=== PATIENT | female | born 1970 | race Caucasian/White ===

== ENCOUNTER 2018-10-14 09:27 | Day surgery (SDC) | payer BC, SELFPAY ==
[2018-10-14] VITALS (7 sets, daily range): BP systolic 114–156; BP diastolic 66–97; PULSE 81–99; RESP 11–18; TEMP 36.2–37.2; O2SAT 96–100
[2018-10-14] MEDS: Lactated Ringers 1,000 ML 80 ML IV (10:20)
--- NOTE | 2018-10-14 15:21 | PDOC.DSDIS_ITS ---
Discharge Plan Disposition Patient Disposition: HOME Condition: Good Discharge Details Reason For Visit: CONTRACTURE (R) KNEE Attending Provider: Carlos Waller Primary Care Provider: Dominga Rosa Home Meds and New Rx's Prescriptions: New hydrocodone-acetaminophen 5-325 mg tablet 2 tab PO Q6H PRN (Reason: pain) Qty: 30 RF: 0 ondansetron HCl 4 mg tablet 4 mg PO BID-TID PRN (Reason: nausea and vomiting) Qty: 10 RF: 0 No Action levothyroxine 75 MCG tablet 75 mcg PO DAILY RF: 0 diphenhydramine HCl [Benadryl Allergy] 25 MG tablet 25 mg PO PRN PRNRF: 0 liothyronine 5 MCG tablet 10 mcg PO DAILY RF: 0 mometasone [Nasonex] 17 GM spray,non-aerosol 1 spry NS DAILY PRNRF: 0 Zyrtec 10 MG capsule 10 mg PO DAILY PRNRF: 0 ibuprofen 200 MG tablet 400 - 600 mg PO BID PRNRF: 0 sodium chloride [Saline Nasal] 44 ML aerosol,spray 1 ea NS DAILY PRNRF: 0 multivitamin [Daily-Rosy] 1 EACH tablet 1 tab PO DAILY RF: 0 fexofenadine [Angela Allergy] 60 mg Tablet 60 mg PO PRN PRNRF: 0 Discharge Instructions Additional Instructions: Keep cryocuff on R knee continuously overnite. Tomorrow begin to use 4 times/day for 1 hour each time. Try to bend R knee every hour (10-20 times) when awake to keep it moving. Start outpatient physical therapy tomorrow for ROM R tkr post-manipulation. Crutches to walk. Put as much weight on R leg as your discomfort allows. Use crutches or cane as long as you limp. Remove dressings, shower, and get incision wet after 72 hours. Leave incisions uncovered when they are dry and sealed. Follow up with in 2 weeks. Take zofran as needed for nausea from pain meds. Take ibuprofen 600 mg every 8 hours to decrease swelling and inflammation. Take for 2 weeks. Take hydrocodone, 1-2 tab every 6 hours, if needed, for breakthru pain. Referrals: Carlos Waller MD [ [facility] STAFF PHYSICIAN] - (f/u in 2 weeks.) Equipment/Supplies: Partial Weight Bearing Crutches Activity:: Activity as Tolerated Remove Dressings/Wound Care:: 72 hours Shower/Bathe:: 72 hours Diet:: As Tolerated Discharge Orders Discharge Orders: Discharge Order (Routine); Ordered 10/14/18 Ordered By: Carlos Waller DS: Diagnosis Discharge Diagnosis (1) Contracture, right knee: Status: Acute
[2018-10-14] MEDS: fentaNYL 100 MCG/2 ML VIAL IVP ×2 (15:25→15:33)
--- NOTE | 2018-10-14 18:45 | ROE_ITS ---
DATE OF PROCEDURE: October 14, 2018 PREOPERATIVE DIAGNOSIS: Contracture of right total knee. POSTOPERATIVE DIAGNOSIS: Contracture of right total knee. PROCEDURE: Arthroscopic lysis of adhesions right knee, with manipulation of the right knee under gen eral anesthesia. SURGEON: Carlos Waller M.D. ANESTHESIA: General, Kamari Gates CRNA INDICATIONS: This is a 47-year-old white female who is three and a half years status post right tota l knee replacement. She had difficulty regaining flexion of her knee following her primary total kne e replacement three and a half years ago. She subsequently underwent a manipulation of her total kne e which resulted in improved motion. She gradually lost this motion over the next few months despite vigorous Physical Therapy. She is now requesting another manipulation to try and get better flexion . Her main complaint is that she has difficulty going up and down stairs because she cannot flex her total knee enough. Her measured flexion is only about 40 degrees. She has full extension. I thoug ht that it would be difficult to get range of motion back. However, I did not think that manipulatio n alone would suffice. I felt that a lysis of adhesions with confucianist of the suprapatellar pouch and freeing the quadriceps muscle from the anterior femur would allow me to manipulate the knee and g et better motion. I explained to the patient that just like previous times, she will have to be comp liant and will have to work very hard to maintain any motion that is gained from the surgery. She sa id that she would work hard postop to maintain the motion. The risks and complications of the proced ure were explained to the patient in detail preoperatively. PROCEDURE: The patient was taken to the Operating Room on 10/14/18. She was placed supine on the ope rating table and a general anesthetic was administered. The right knee was prepped and draped free i n the usual sterile fashion. Arthroscopic portals were established. The arthroscope was introduced through an infrapatellar lateral portal. An outflow cannula was passed superolateral and superomedia l with the arthroscopy incision for insertion of the high-radiofrequency electrocautery wand. Resect ion of the scar then began around the patella. I cleared out the patellofemoral joint and reestablis hed the lateral gutter and the medial gutter. I then proceeded to reestablish the volume of the supr apatellar pouch and then peeled off the quadriceps from the anterior femur until I thought I had rest ored the full volume to the suprapatellar pouch. At this point, I asked the breakfast manager to provide m uscle paralysis. I then proceeded to manipulate the knee. After the arthroscopic lysis of adhesions , the manipulation did not require any significant force. I was able to manipulate her knee easily i nto flexion of about 115 degrees. Photographs were then taken of her knee in the flexed position to document the amount of flexion that was gained and provide a visual aid for the patient when she reha bs her knee postop. The knee was then irrigated with saline solution using the arthroscopy pump until the outflow was vasu ar. I then instilled into the right knee 20 cc of 0.5% Marcaine with epinephrine solution along with 4 mg of morphine. The arthroscopy portals were infiltrated with 0.5% Marcaine with epinephrine solu tion and were approximated with interrupted #4-0 nylon sutures. Sterile dressings were applied, foll owed by a light compressive dressing to the right knee. The patient tolerated her procedure well. H er anesthesia was reversed without complications. Blood loss was minimal. She was discharged to the Recovery Room in good condition. The patient was later discharged home from the Day Surgery Unit when fully recovered from her general anesthesia. She was seen by Physical Therapy to begin active flexion of her right knee in the Day S urgery Unit. She will continue to try to flex her knee actively 10 to 20 times an hour when awake to night. Tomorrow she will start outpatient Physical Therapy to try to maintain the motion that was ga ined with manipulation. She is to run the Cryo/Cuff continuously overnight on the right knee. Luis Eduardo calabrese she will start using the Cryo/Cuff four times a day for an hour each time. She should keep her dr melo intact for the next 72 hours. After 72 hours she may remove the dressings, shower and get th e incisions wet. She can leave the incisions uncovered when they are dry and sealed. She is to be w eightbearing as tolerated with crutches. She will continue to use crutches or a cane as long as she has a limp. She is given a fentanyl patch 25 mcg to use to supplement her postoperative pain medicat ions for the next 72 hours. She is given a prescription for hydrocodone/APAP 5 mg/325 mg, 1-2 tablet s every 6 hours as needed for breakthrough pain. She will continue with ibuprofen 600 mg p.o. t.i.d. for the next two weeks. She is given a prescription for Zofran 4 mg p.o. q.6h. p.r.n. for nausea fr om her pain medications. She will follow up with Dr. Waller in two weeks.
--- NOTE | 2018-10-15 11:06 | PT.INIE ---
Date of service: 10/14/18 Time of Service: 13:12 PT Notes Inpatient Physical Therapy Evaluation Date: 10/14/2018 Referring Doctor: Carlos Waller MD PT Orders: PT CONSULT: Start active flexion of right knee in DSU. Had arthroscopic lysis of adhesions and manipulation of right TKR. Will need to be followed as an outpatient starting tomorrow. Precautions: Fall. Standard. PWB on right LE. Patient Profile/Admitting Diagnosis: Patient is a 47-year-old female with diagnosis of right knee contracture status post arthroscopic lysis of adhesions and manipulation of right TKR early today. Patient had a previous TKR on 01/11/2015. She reports that she has had increasing difficulty with mobility performance and has manipulations done previously to manage range of motion issues on same knee. PMHX: Unremarkable except for right TKR on 01/11/2015. Social History/Home Situation: Patient lives with in a house with 14 steps to the second floor where patient's bedroom, rails on both sides. Equipment Owned/DME: Patient has bilateral axillary crutches at home Subjective: Patient in PACU bed. Agreeable to a PT consult and intervention. I feel like my hamstrings are on the verge of cramping Objective: General Observation: Patient lying in bed. Telemetry on. IV in the right UE. Jorje bandages on mid thigh through distal leg on the right side. Mental Status: Alert and oriented x3 Pain: 5/10 on the right hip mostly on the popliteal area near hamstring insertions. ROM: Right Upper Extremity: WFL Left Upper Extremity: WFL Right Lower Extremity: Patient able to actively flex knee up to 88 degrees in supine with 5/10 pain on popliteal area. Hip flexion 0-100 degrees, actively. Dorsiflexion WFL. Left Lower Extremity: WFL Strength: Right Upper Extremity: WFL Left Upper Extremity: WFL Right Lower Extremity: Hip flexors 3-/5. Knee extensors 3/5. Knee flexors 3-/5. Ankle dorsiflexors/plantarflexors 4+/5. Left Lower Extremity: WFL Sensation: Intact as to pain and pressure on distal B LE. Bed Mobility/Transfers: Rolling minimal assist Supine to sit NT Sit to supine NT Sit to stand NT Stand to sit NT Bed to chair NT Chair to bed NT Gait: NT. Patient did not feel secure to do ambulation due to increased cramping of hamstring muscles. Gait teaching on safe gait pattern and appropriate weight bearing precaution done with walker and bilateral crutches. Balance: Static Sitting: NT Dynamic Sitting: NT Static Standing: NT Dynamic Standing: NT Special Tests: Mobility Limitations Standardized Measure [facility] AM-PAC 6 clicks Basic Mobility Inpatient Short Form: Raw Score: 10 CMS Score: 77% deficit Informed Consent/Education/PT Intervention: Patient instructed in purpose of PT consult. The following therapeutic exercises were given to patient for today's session with intermittent rests and deep breathing exercises done in between each activity: gentle passive stretching to right knee flexors 5 reps with [id number] with contract-relax technique incorporated, supine SLR x 10, supine heel slides x10, supine LAQs cues x10. Assessment: Patient is a 47 year old female referred to physical therapy services with the diagnosis of right knee contracture status post arthroscopic lysis of adhesions and manipulation of right TKR. Patient presents with clinical signs and symptoms consistent with current/admitting diagnoses that has resulted to mobility limitations, gait instability, generalized weakness, and lack of motor control as demonstrated by the following impairment level findings: as demonstrated by the following impairment level findings: 1. Decreased strength right LE major muscle group 2. Impaired balance 3. Impaired activity tolerance 4. Limitation of joint range of motion in right hip and knee joints Impairments are contributing to the following functional limitations: 1. Impaired bed mobility skills performance 2. Increased dependence with transfers 3. Inability to safely ambulate without assistive device and physical assistance 4. Increase completion time for mobility ADL performance 5. Increased fall risk 6. Inability to negotiate steps alone safely Patient is assessed as a Low 49447 complexity based on the following: History: Patient is a 47-year-old female with right knee contracture status post arthroscopic lysis of adhesions and manipulation of right TKR Examination: Underlying impairments and functional deficits as noted above Presentation: Evolving Decision Making: Low 66903 complexity Goals: Not applicable. Patient goes home today with plan to proceed with outpatient physical therapy services beginning tomorrow as ordered by orthopedic surgeon DISCHARGE RECOMMENDATIONS: Continue with weightbearing precaution using bilateral axillary crutches. Outpatient physical therapy services to commands on 10/15/2018 as ordered by orthopedic surgeon. TREATMENT CODE/TIME: 42728 30 minutes, 90434 25 minutes, 83938 12 minutes beginning at 13:12 PM.
== END 2018-10-14 17:31 | disposition home or self-care (01) ==
PROVIDERS: PCP Nurse Practitioner Family; Visit Provider Orthopaedic Surgery
PROC: (CPT 29870; principal; 2018-10-14 11:30)
PROC: (CPT 27570; 2018-10-14 11:30)
DX: M24.561 Contracture, right knee (principal); Z96.651 Presence of right artificial knee joint
CPT/HCPCS: 29884; 27570; 97110; 97162; 97530; J0690; J3010

== ENCOUNTER 2018-10-24 10:34 | Outpatient (CLI) | payer BC, SELFPAY ==
[2018-10-24 12:03] LABS: ALT 30 U/L (12-78); AST 35 U/L (15-37); Albumin 4.1 g/dL (3.4-5.0); Alkaline Phosphatase 66 U/L (46-116); Bilirubin, Total 0.5 mg/dL (0.2-1.0); Cholesterol 138 mg/dL (50-200); HDL Cholesterol 47 mg/dL (40-60); LDL CHOLESTEROL 88 mg/dL (<100); Total Protein 7.1 g/dL (6.4-8.2); Triglyceride 35 mg/dL (30-150)
[2018-10-24 12:24] LABS: Bilirubin, Direct 0.15 mg/dL (0.00-0.20); FREE T4 1.19 ng/dL (0.76-1.46)
[2018-10-24 21:03] LABS: T3,Free 5.3 pg/ml (2.8-5.3)
[2018-10-25 09:50] LABS: Thyroglobulin Antibody 39 U/mL (<61); Thyroperoxidase Antibody 95 U/mL (<61)
== END 2018-10-24 10:54 ==
PROVIDERS: PCP Nurse Practitioner Family; Visit Provider Naturopath
DX: Z00.00 Encounter for general adult medical examination without abnormal findings (principal); E06.3 Autoimmune thyroiditis
CPT/HCPCS: 36415; 80061; 80076; 83721; 84439; 84443; 84481; 86376; 86800

== ENCOUNTER 2019-12-09 13:01 | Outpatient (CLI) | payer BC, SELFPAY ==
--- NOTE | 2019-12-09 11:39 | DI.RAD_ITS ---
EXAM: XR SHOULDER LT COMPLETE 2+V CLINICAL HISTORY: pain TECHNIQUE: COMPARISON: No exams were available for comparison FINDINGS: Two views were obtained. There is tiny soft tissue calcification projected lateral to the humeral he ad on internal rotation AP view. There are mild changes of hypertrophic spurring at the acromioclavi cular joint. Cartilaginous joint space of glenohumeral joint appears fairly well maintained. No oth er significant abnormality seen. IMPRESSION:
== END 2019-12-09 13:21 ==
PROVIDERS: PCP Nurse Practitioner Family; Visit Provider Orthopaedic Surgery
DX: M25.512 Pain in left shoulder (principal)
CPT/HCPCS: 73030

== ENCOUNTER 2020-10-13 14:52 | Outpatient (CLI) | payer BC, SELFPAY ==
--- NOTE | 2020-10-13 13:00 | DI.RAD_ITS ---
EXAM: XR KNEE LT 3V AP,LAT,LISA CLINICAL HISTORY: left knee pain. TECHNIQUE: 2D digital imaging was performed. COMPARISON: CR RIGHT KNEE LIMITED 1 OR 2 VIEW from 01/12/2016 FINDINGS: There is no evidence fracture or joint effusion. Some calcification is noted at the insertion site o f the quadriceps tendon on the anterior superior aspect of the patella. No calcification in the weeks llar ligament. No obvious degenerative changes in the medial lateral compartments.. Mild degenerati ve changes are seen in the patellofemoral compartment is seen on the lateral view. On the merchant's view there is no narrowing of the retropatellar space. IMPRESSION: DATA REPOSITORY: RADIATION DOSE DELIVERED:
== END 2020-10-13 14:53 | disposition home or self-care (01) ==
LOC: DIORS 14:52
PROVIDERS: PCP Nurse Practitioner Family; Referring Provider Nurse Practitioner Family; Visit Provider Student in an Organized Health Care Education/Training Program
DX: M25.562 Pain in left knee (principal)
CPT/HCPCS: 73562

== ENCOUNTER 2020-12-23 14:03 | Outpatient (REF) | payer BC, SELFPAY ==
--- NOTE | 2020-12-23 13:00 | PAPFT_PTH ---
PATIENT: Sita De León LOC: [facility] U#:[id number] AGE/SX: 50/F ROOM: RE12/23/[address]: JOCELYNN Howard : 1970 BED: DIS: 12/23/2020 SPEC #: [id number] RECD: 12/23/20 17:51 STATUS: KIANA REIan #: [id number] LANIE: 12/23/20 13:[address]: Safia Singh DEPT: [facility] Cytology RECD BY: Rowan Garcia ENTERED: 12/23/20 17:51 SP TYPE: PAPFT OTHR DR: Dominga Rosa Tissues: 1 - CX/ENDOCX FOR PAP SMEARS Procedures: PAP THIN PREP/UVM Screening HPV DNA PROBE Comments: [id number]
== END 2020-12-23 14:04 | disposition home or self-care (01) ==
LOC: LBN 14:03
PROVIDERS: PCP Nurse Practitioner Family; Visit Provider Nurse Practitioner Family
DX: Z12.4 Encounter for screening for malignant neoplasm of cervix (principal); Z11.51 Encounter for screening for human papillomavirus (HPV)
CPT/HCPCS: 88142; 87624

== ENCOUNTER 2021-01-12 08:22 | Outpatient (CLI) | payer BC, SELFPAY ==
[2021-01-12 16:05] LABS: TSH 0.76 uIU/mL (0.36-3.74)
[2021-01-12 22:29] LABS: Thyroperoxidase Antibody 64 U/mL (<=60)
[2021-01-18 22:28] LABS: Thyroglobulin Antibody <15 U/mL (<=60)
== END 2021-01-12 08:23 | disposition home or self-care (01) ==
PROVIDERS: PCP Nurse Practitioner Family; Visit Provider Naturopath
DX: E06.3 Autoimmune thyroiditis (principal)
CPT/HCPCS: 36415; 84439; 84443; 84481; 86376; 86800

== ENCOUNTER 2021-02-22 03:01 | Outpatient (CLI) | payer BC, SELFPAY ==
--- NOTE | 2021-02-22 08:15 | DI.US_ITS ---
Exam(s) US PELVIS TRANSVAGINAL EXAM: US PELVIS TRANSVAGINAL CLINICAL HISTORY: Abnormal VAGINAL BLEEDING,N93.9. TECHNIQUE: Transabdominal and transvaginal pelvic ultrasound was performed using standard protocol. COMPARISON: No exams were available for comparison FINDINGS: KIDNEYS: Kidneys are symmetric in size. No evidence of renal calculi. No evidence of hydronephrosis. No renal mass or cyst identified. UTERUS: Position: Anteverted. Size: 8.7 long by 4.2 AP by 5.3 transverse cm Endometrium: Up to 1.3 cm cm. Normal for patient's menstrual status. Myometrium: Unremarkable. Cervix: Unremarkable. OVARIES: Right: 3 x 2.2 x 2.1 cm Cyst or mass: Functional cyst is present. Left: 3 x 1.5 x 1.5 cm Cyst or mass: None. DOPPLER: Color: Symmetric and uniform flow to both ovaries. No hyperemia. Duplex: Normal ovarian arterial waveforms visualized. CUL-DE-SAC: Free fluid: None. Other: None. IMPRESSION: 1. Normal sonographic appearance of the kidneys. 2. Endometrial stripe at the upper limits of normal at 1.3 cm. 3. Unremarkable bilateral ovaries. DATA REPOSITORY:
--- NOTE | 2021-02-22 14:16 | DI.MAMMO_ITS ---
Exam(s) MAMMO SCREENING EXAM: MAMMO SCREENING CLINICAL HISTORY: screening,Z12.39 TECHNIQUE: Bilateral full field digital CC and MLO mammographic images were obtained with 3D tomosyn thesis and utilizing computer aided detection (CAD). COMPARISON: Available for comparison. FINDINGS: Masses/Architectural Distortion: None seen. Microcalcifications: No suspicious pleomorphic-type are seen. Skin Thickening/Nipple Retraction: None. IMPRESSION: 1. No significant interval change with no specific features of malignancy noted. 2. Unless there is more urgent need, screening mammography is recommended, as per [place] [employer] guidelines. BI-RADS Category 1 - Negative Breast Density - Category B - Scattered areas of fibroglandular density Breast density category C or D implies that the patient has dense breast tissue. Dense breast tissue is very common and is not abnormal but dense breast tissue can make it harder to find cancer on a ma mmogram. Also, dense breast tissue may increase their breast cancer risk. This information about the result of the mammogram report was provided to the patient to raise their awareness. Use this report when you speak with the patient about their risks for breast cancer, which includes their family hist ory. At that time, you may recommend for more screening tests (Ultrasound or MRI) as they might be us eful based on their risk. A negative radiographic report should not delay biopsy if a dominant or clinically suspicious mass is present. Up to ten percent of cancers are not identified on mammography. A negative report may reinforce clinical impression. Adenosis and dense breasts may obscure an underlying neoplasm. False positive reports average 6 to 10%. Patient will receive a letter notifying them of these results.
== END 2021-02-22 03:21 ==
PROVIDERS: PCP Nurse Practitioner Family; Visit Provider Nurse Practitioner Family
DX: Z12.31 Encounter for screening mammogram for malignant neoplasm of breast (principal); N93.9 Abnormal uterine and vaginal bleeding, unspecified; R92.8 Other abnormal and inconclusive findings on diagnostic imaging of breast
CPT/HCPCS: 77063; 77067; 76830; 76856

== ENCOUNTER 2021-11-01 13:43 | Outpatient (CLI) | payer BC, SELFPAY ==
--- NOTE | 2021-11-01 13:30 | DI.RAD_ITS ---
Exam(s) XR SHOULDER RT COMPLETE 2+V EXAM: XR SHOULDER RT COMPLETE 2+V CLINICAL HISTORY: pain. TECHNIQUE: 2D digital imaging was performed of the right shoulder. Two images were obtained. AP an d axillary views were obtained. COMPARISON: CR RIGHT SHOULDER COMPLETE from 12/09/2013 FINDINGS: BONES: No acute fracture is present. No bony destructive lesion is seen. JOINTS: No dislocation present. SOFT TISSUE: Normal. IMPRESSION: Unremarkable radiographs of the right shoulder. DATA REPOSITORY: RADIATION DOSE DELIVERED:
== END 2021-11-01 13:44 | disposition home or self-care (01) ==
LOC: DIORS 13:43
PROVIDERS: PCP Naturopath; Referring Provider Naturopath; Visit Provider Physician Assistant
DX: M25.511 Pain in right shoulder (principal)
CPT/HCPCS: 73030

== ENCOUNTER 2022-04-17 14:53 | Outpatient (CLI) | payer BC, SELFPAY ==
[2022-04-17 16:57] LABS: FREE T4 1.05 ng/dL (0.76-1.46); TSH 0.92 uIU/mL (0.36-3.74)
[2022-04-18 17:28] LABS: T3,Free 3.7 pg/mL (2.8-5.3)
[2022-04-18 19:10] LABS: Thyroglobulin Antibody <15 U/mL (<=60); Thyroperoxidase Antibody 63 U/mL (<=60)
== END 2022-04-17 14:54 | disposition home or self-care (01) ==
LOC: LBO 14:55
PROVIDERS: PCP Naturopath; Visit Provider Naturopath
DX: E06.3 Autoimmune thyroiditis (principal)
CPT/HCPCS: 36415; 84439; 84443; 84481; 86376; 86800

== ENCOUNTER 2022-04-25 14:49 | Outpatient (CLI) | payer BC, SELFPAY ==
--- NOTE | 2022-04-25 14:45 | DI.RAD_ITS ---
Exam(s) XR ANKLE LT COMPLETE EXAM: XR ANKLE LT COMPLETE CLINICAL HISTORY: Achilles pain TECHNIQUE: 2D digital imaging was performed of the left ankle. Three images were obtained. AP, lat eral and oblique views were obtained. COMPARISON: No exams were available for comparison FINDINGS: BONES: No acute fracture is present. No bony destructive lesion is seen. There is a large plantar eli caneal spur. JOINTS:The ankle mortise is normally aligned. SOFT TISSUE: Enthesophytes are seen at the Achilles insertion site. The soft tissues are otherwise u nremarkable. IMPRESSION: Enthesophyte at the Achilles insertion site. If there is concern for Achilles injury, an MRI of the ankle should be obtained for further evaluation. DATA REPOSITORY: RADIATION DOSE DELIVERED:
== END 2022-04-25 14:50 | disposition home or self-care (01) ==
LOC: DIORS 14:49
PROVIDERS: PCP Naturopath; Referring Provider Naturopath; Visit Provider Student in an Organized Health Care Education/Training Program
DX: M76.62 Achilles tendinitis, left leg (principal)
CPT/HCPCS: 73610

== ENCOUNTER 2022-09-25 01:33 | Outpatient (CLI) | payer BC, SELFPAY ==
--- NOTE | 2022-09-25 08:00 | DI.MRI_ITS ---
Exam(s) MR LOWER JOINT LT WO EXAM: MR LOWER JOINT LT WO CLINICAL HISTORY: left achilles tendintits,m76.62 TECHNIQUE: Multiplanar multisequence MRI was performed without intravenous contrast. COMPARISON: CR XR ANKLE LT COMPLETE from 04/25/2022 FINDINGS: BONES/JOINTS: There is marrow edema seen in the posterior process of the calcaneus. Subchondral cyst s are seen in the distal fibula. The talar dome is smooth. The ankle mortise is maintained. Subchond ral cysts and marrow edema is seen in the lateral cuneiform. LIGAMENTS: The tibiofibular and calcaneofibular ligaments are intact. The talofibular ligaments are i ntact. The deltoid ligament is intact. The syndesmosis is unremarkable. Sinus tarsi is normal. MUSCULOTENDINOUS STRUCTURES: Achilles tendon: The Achilles tendon is thickened. Enthesophytes are seen at the insertion site onto the calcaneus. There is not appear to be a tear. There is hyperintense signal seen in the retrocal caneal bursa. There does appear to be mild hyperintense signal seen in the retro Achilles bursa. (S eries 3001, image 15). Plantar fascia: Unremarkable. Anterior Extensor tendons: Unremarkable. Posterior Tibialis: Unremarkable. Flexor Digitorum longus: Unremarkable. Flexor Hallucis longus: Unremarkable. Peroneus longus: Unremarkable. Peroneus brevis:Unremarkable. SOFT TISSUES: There is mild edema seen in the soft tissues. No focal fluid collection is seen. OTHER FINDINGS: None. IMPRESSION: 1. Findings suggestive of a Tanisha's deformity with fluid seen in the retrocalcaneal bursa, Achilles tendinitis and hyperintense signal in the retro Achilles bursa. 2. Marrow edema seen in the posterior calcaneus. No evidence of an occult fracture. 3. Degenerative changes seen in the foot. DATA REPOSITORY:
== END 2022-09-25 01:53 ==
PROVIDERS: PCP Naturopath; Visit Provider Student in an Organized Health Care Education/Training Program
DX: M76.62 Achilles tendinitis, left leg (principal); M92.62 Juvenile osteochondrosis of tarsus, left ankle; M79.89 Other specified soft tissue disorders
CPT/HCPCS: 73721